=== PATIENT | female | born 1945 | race Caucasian/White ===

== ENCOUNTER → 2018-05-28 | Outpatient (CLI) | payer MEDICARE ==
[2014-12-05 12:43] VITALS: BP 170/100
[~2018-05-28] MED LIST: LOSA1TAB22 PO; PARO20TA99 PO; [UNRECOGNIZED DRUG - OTHER]
--- NOTE | 2018-05-28 13:09 | RAD ---
EXAM: Chest, 2 views. HISTORY: Cough. COMPARISON: 09/12/2016 FINDINGS: Frontal and lateral views of chest are obtained. There is no infiltrate, pleural effusion or pneumothorax. The heart is normal in size. There is hyperinflation due to inspiratory effort or emphysema. There are calcifications overlying the left upper quadrant, possibly due to left nephrolithiasis. IMPRESSION: No acute pulmonary finding. Electronically signed by: Maeve Palomino MD (05/28/2018 1:06 PM) [place] [id number]
== END | disposition home or self-care (01) ==
LOC: PMG 10:22
PROVIDERS: ATTEND Physician Assistant Medical
DX: R05 Cough (principal); I10 Essential (primary) hypertension; J45.909 Unspecified asthma, uncomplicated; K21.9 Gastro-esophageal reflux disease without esophagitis
CPT/HCPCS: 71046

== ENCOUNTER → 2019-11-15 | Outpatient (CLI) | payer MEDICARE ==
[2014-12-05 12:43] VITALS: BP 170/100
[~2019-11-15] MED LIST changes: +IOHEXOL 240 MG/ML 50ML VIAL. ONE; +IOHEXOL 240 MG/ML 50ML VIAL. PO ONE; +IOHEXOL 300 MG/ML 75 ML VIAL. IV ONE
--- NOTE | 2019-11-15 18:12 | RAD ---
Examination: CT ABD PELV W/ORAL IV CONTRAST History: Chronic diarrhea for 2 years Comparison/Correlation: None Findings: Axial images of the abdomen and pelvis were obtained following IV and oral contrast. Sagittal and coronal reformatted provided. Motion limits evaluation at multiple levels of the abdomen. The lung bases are clear. Liver is grossly unremarkable. At the inferior tip of the right hepatic lobe on axial image 28, there is a 1.6 cm x 1.1 cm low-attenuation lesion which is subcapsular in location. It is hypodense. Sludge is suggested within the gallbladder. Spleen is unremarkable. Right renal superior pole 0.6 cm diameter present and may represent a cyst. It is too small to characterize. No inflammatory changes identified about the cecum. Minimal diverticulosis of the colon. No extraluminal gas. No bowel obstruction. No enlarged abdominal or pelvic lymph nodes. No ascites or pelvic free fluid. A Minimal anterolisthesis of L4 in relation L5 is present. At the left symphysis anteriorly, bone island is present. Impression: Indeterminate hepatic lesion which may represent a cyst or other benign process. Ultrasound correlation in 6 months to assess stability is recommended. No acute inflammatory process. Mild diverticulosis. PQRS Compliance Statement: One or more of the following individualized dose reduction techniques were utilized for this examination: 1. Automated exposure control 2. Adjustment of the mA and/or kV according to patient size 3. Use of iterative reconstruction technique Electronically signed by: Gilberto Rader MD (11/15/2019 6:09 PM) [facility]
== END | disposition home or self-care (01) ==
LOC: CT 10:20
PROVIDERS: ATTEND Physician Assistant Medical
DX: K57.30 Diverticulosis of large intestine without perforation or abscess without bleeding (principal); K76.89 Other specified diseases of liver
CPT/HCPCS: 74177; Q9966; Q9967

== ENCOUNTER → 2022-01-08 | Outpatient (CLI) | payer MEDICARE ==
[2014-12-05 12:43] VITALS: BP 170/100
[~2022-01-08] MED LIST changes: -IOHEXOL 240 MG/ML 50ML VIAL. ONE; -IOHEXOL 240 MG/ML 50ML VIAL. PO ONE; -IOHEXOL 300 MG/ML 75 ML VIAL. IV ONE
--- NOTE | 2022-01-08 13:24 | RAD ---
EXAM: Carotid Doppler sonogram. HISTORY: Vertigo. Atherosclerosis. TECHNIQUE: Bhagat scale and color Doppler sonographic evaluation of the neck with spectral waveform joce lysis was performed and static images are submitted for review. FINDINGS: There is mild atherosclerotic plaque involving the common carotid arteries, right carotid b ulb and proximal left internal carotid artery. The peak systolic velocity within the right common carotid artery is 83 cm/sec. The peak systolic [place] ocity within the right internal carotid artery is 111 cm/sec and the end diastolic velocity within th e right internal carotid artery is 36 cm/sec. The right ICA/CCA ratio is 1.3. The peak systolic velocity within the left common carotid artery is 87 cm/sec. The peak systolic [place] within the left internal carotid artery is 119 cm/sec and the end diastolic velocity within the left internal carotid artery is 43 cm/sec. The left ICA/CCA ratio is 1.5. There is normal antegrade flow within both vertebral arteries. IMPRESSION: Doppler findings consistent with less than 50 percent stenosis involving the internal car otid arteries. PQRS Compliance Statement - Stenosis calculations for CT, MR and conventional angiography are based u manju measurement of the distal ICA diameter in accordance with the NASCET methodology. Stenosis calcu lations for carotid ultrasound studies are derived from validated velocity criteria which are known t o correlate with the NASCET methodology. Consensus Panel Bhagat-scale and Doppler US Criteria for Diagnosis of ICA Stenosis Degree of Stenosis (%) ICA PSV (Cm/sec) Plaque Estimate (%)* Normal <125 None <50 <125 <50 50-69 125-230 >50 >70 but < near occlusion >230 >50 Near occlusion High, low, or undetectable Visible Total occlusion Undetectable Visible, no detectable lumen *Plaque estimate (diameter reduction) with bhagat-scale and color Doppler US Degree of Stenosis (%) ICA/CCA PSV Ratio ICA EDV (cm/sec) Normal <2.0 <40 <50 <2.0 <40 50-69 2.0-4.0 40-100 >70 but < near occlusion >4.0 >100 Near occlusion Variable Variable Total occlusion Not applicable Not applicable Electronically signed by: Maeve Palomino MD (01/08/2022 1:22 PM) [id number]
== END ==
LOC: US 10:48
PROVIDERS: ATTEND Physician Assistant Medical
DX: I65.23 Occlusion and stenosis of bilateral carotid arteries (principal); R42 Dizziness and giddiness
CPT/HCPCS: 93880